=== PATIENT | female | born 1960 | race Caucasian/White ===

== ENCOUNTER 2017-01-26 12:30 | Emergency (ER) | payer OTHER ==
--- NOTE | 2017-01-26 12:48 | CPEKG ---
Heart Rate: 70 RR Interval: 857 P-R Interval: 160 QRSD Interval: 76 QT Interval: 392 QTC Interval: 423 P Imperial: -6 QRS Imperial: 22 T Wave Imperial: 14 EKG Severity - NORMAL ECG - EKG Impression: SINUS RHYTHM Electronically Signed By: Yamel Lao 26-Jan-2017 18:00:06
--- NOTE | 2017-01-26 12:57 | EDPHY ---
HPI/HX/ROS/PE/MDM Narrative: CHIEF COMPLAINT: Arm pain HPI: The patient is a 56-year-old female who complains of acute left arm pain that started last night. She reports difficulty sleeping last night due to pain. While at work today the arm pain worsened. Pain is worse with lateral movement and backward movement. She reports no trauma to the arm.During a meeting today she states she started to feel "foggy". She has no associated chest pain or shortness of breath. The patient has no cardiac history. REVIEW OF SYSTEMS: Aside from elements discussed in the HPI, a comprehensive 10-point review of systems was reviewed and is negative. PMH: Denies. SOCIAL HISTORY: . PHYSICAL EXAM: General: Patient is alert, in no acute distress. ENT: Eyes are normal to inspection. ENT inspection normal. Neck: Normal inspection. Full range of motion. Respiratory: No respiratory distress. Breath sounds normal bilaterally. Cardiovascular: Regular rate and rhythm. Strong peripheral pulses. Abdomen: The abdomen is nontender to palpation. There are no peritoneal signs. There are normal bowel sounds. Back: Normal to inspection. No tenderness to palpation. Skin: Normal color. No rash. Warm and dry. Extremities: Normal appearance. Full range of motion. Neuro: Oriented x3. Normal motor function. Normal sensory function. ED Course: The patient presents with acute left arm pain. She reports no trauma to the arm. She has no associated chest pain or shortness of breath. I offered x-ray of arm, patient declines. Plan for labs, EKG, and troponin. EKG was ordered and interpreted by myself. Please see [facility] system for official reading: Sinus rhythm. Lab work is insignificant. Troponin is normal. Shoulder pain is likely due to muscle strain. I do not suspect pain is due to cardiac reason. 2:10 p.m.: Findings discussed with the patient. MDM: This patient presents with pain isolated to the left lateral arm. She has no complaint of chest pain or shortness of breath but became concerned for possible cardiac etiology when she looked online. Based on lack of chest pain and full negative workup including ECG and troponin, I think this is unlikely. The patient refused a CXR. Her pain is clearly located along an isolated muscle and is reproducible with shoulder ABduction. We discussed strict return precautions. - Data Points Laboratory Results: Laboratory Results 01/26/17 13:10 01/26/17 13:10 01/26/17 01/26/17 13:10 13:10 WBC 7.70 10^3/uL 10^3/uL (3.80-9.50) RBC 5.03 10^6/uL 10^6/uL (4.18-5.33) Hgb 14.1 g/dL g/dL (12.6-16.3) Hct 41.3 % % (38.0-47.0) MCV 82.1 fL fL (81.5-99.8) MCH 28.0 pg pg (27.9-34.1) MCHC 34.1 g/dL g/dL (32.4-36.7) RDW 12.6 % % (11.5-15.2) Plt Count 192 10^3/uL 10^3/uL (150-400) MPV 10.9 fL fL (8.7-11.7) Neut % (Auto) 65.9 % % (39.3-74.2) Lymph % (Auto) 23.0 % % (15.0-45.0) [place] % (Auto) 8.7 % % (4.5-13.0) Eos % (Auto) 1.6 % % (0.6-7.6) Baso % (Auto) 0.5 % % (0.3-1.7) Nucleat RBC Rel Count 0.0 % % (0.0-0.2) Absolute Neuts (auto) 5.08 10^3/uL 10^3/uL (1.70-6.50) Absolute Lymphs (auto) 1.77 10^3/uL 10^3/uL (1.00-3.00) Absolute Monos (auto) 0.67 10^3/uL 10^3/uL (0.30-0.80) Absolute Eos (auto) 0.12 10^3/uL 10^3/uL (0.03-0.40) Absolute Basos (auto) 0.04 10^3/uL 10^3/uL (0.02-0.10) Absolute Nucleated RBC 0.00 10^3/uL 10^3/uL (0-0.01) Immature Gran % 0.3 % % (0.0-1.1) Immature Gran # 0.02 10^3/uL 10^3/uL (0.00-0.10) Sodium 138 mEq/L mEq/L (134-144) Potassium 4.0 mEq/L mEq/L (3.5-5.2) Chloride 104 mEq/L mEq/L (97-110) Carbon Dioxide 24 mEq/l mEq/l (22-31) Anion Gap 10 mEq/L mEq/L (8-16) BUN 17 mg/dL mg/dL (7-23) Creatinine 0.7 mg/dL mg/dL (0.6-1.0) Estimated GFR > 60 Glucose 94 mg/dL mg/dL (70-100) Calcium 9.6 mg/dL mg/dL (8.5-10.4) Troponin I < 0.012 ng/mL ng/mL (0-0.034) General Time Seen by Provider: 01/26/17 12:47 Initial Vital Signs: Initial Vital Signs Temperature (C) 36.9 C 01/26/17 12:33 Heart Rate 77 01/26/17 12:33 Respiratory Rate 14 01/26/17 12:33 Blood Pressure 153/91 H 01/26/17 12:33 O2 Sat (%) 97 01/26/17 12:33 O2 Delivery Mode Room Air Allergies/Adverse Reactions: No Known Allergies Allergy (Unverified 01/26/17 12:33) Home Medications: Medication Instructions Recorded NK [No Known Home Meds] 01/26/17 Departure - Departure Disposition: Home, Routine, Self-Care Clinical Impression: Muscle strain, upper arm Qualifiers: Encounter type: initial encounter Laterality: left Qualified Code(s): S46.912A - Strain of unspecified muscle, fascia and tendon at shoulder and upper arm level, left arm, initial encounter Condition: Good Instructions: Arm Pain (ED) Additional Instructions: Take 600mg Ibuprofen every 6-8 hours as needed for pain. You have been referred to a primary care physician below. Followup with your primary care physician if you continue to have pain. Referrals: [facility] [Other] - As per Instructions Ela Maldonado MD [[facility] Primary Care Provider] - As per Instructions (Primary Care Physician) Report Scribed for: Douglas Estrada Report Scribed by: Chiquita Avalos Date of Report: 01/26/17 Time of Report: 13:02 Physician Review and Approval Statement: Portions of this note were transcribed by a medical records auditor. I personally performed the history, physical exam, and medical decision-making; and confirmed the accuracy of the information in the transcribed note.
[2017-01-26 13:16] LABS: % IMMATURE GRANULYOCYTES 0.3 % (0.0-1.1); ABSOLUTE IMMATURE GRANULOCYTES 0.02 10^3/uL (0.00-0.10); ADD DIFF? NO; ADD MORPH? NO; ADD SCAN? NO; ATYPICAL LYMPHOCYTE FLAG 20 (0-99); FRAGMENT RBC FLAG 0 (0-99); HEMATOCRIT 41.3 % (38.0-47.0); HEMOGLOBIN 14.1 g/dL (12.6-16.3); LEFT SHIFT FLG 0 (0-99); LIPEMIA HEMOLYSIS FLAG 90 (0-99); MEAN CELL HEMOGLOBIN CONCENTR. 34.1 g/dL (32.4-36.7); MEAN CELL VOLUME 82.1 fL (81.5-99.8); MEAN PLATELET VOLUME 10.9 fL (8.7-11.7); PLATELET CLUMPS FLAG 10 (0-99); PLATELET COUNT 192 10^3/uL (150-400); RED BLOOD CELL COUNT 5.03 10^6/uL (4.18-5.33); RED CELL DISTRIBUTION WIDTH 12.6 % (11.5-15.2)
[2017-01-26 13:35] LABS: ANION GAP 10 mEq/L (8-16); CALCIUM 9.6 mg/dL (8.5-10.4); CARBON DIOXIDE 24 mEq/l (22-31); CHLORIDE 104 mEq/L (97-110); CREATININE 0.7 mg/dL (0.6-1.0); GLOMERULAR FILTRATION RATE > 60; GLUCOSE 94 mg/dL (70-100); SODIUM 138 mEq/L (134-144)
[2017-01-26 13:47] LABS: TROPONIN I < 0.012 ng/mL (0-0.034)
[2017-01-26 13:48] VITALS: PULSE 72; RESP 16
[2017-01-26 14:30] VITALS: BP 128/75; TEMP 97.5; O2SAT 98
== END 2017-01-26 14:30 | disposition home or self-care (01) ==
DX: S46.912A Strain of unspecified muscle, fascia and tendon at shoulder and upper arm level, left arm, initial encounter (principal); X58.XXXA Exposure to other specified factors, initial encounter; Y92.69 Other specified industrial and construction area as the place of occurrence of the external cause